=== PATIENT | male | born 1980 | race Caucasian/White ===

== ENCOUNTER 2016-06-06 08:04 | Emergency (ER) | payer OTHER ==
[~2016-06-06] VITALS: Ht 185.4 cm; Wt 85.0 kg
[2016-06-06 08:12] VITALS: BP 130/75; PULSE 73; RESP 14; TEMP 98.1; O2SAT 99
[2016-06-06 09:10] LABS: AUTOMATED NEUTROPHIL # 5.7 TH/MM3 (1.8-7.7); BASOPHIL % 0.5 % (0.0-2.0); EOSINOPHIL # 0.1 TH/MM3 (0-0.4); EOSINOPHIL % 0.9 % (0.0-4.0); HEMATOCRIT 44.9 % (39.0-51.0); HEMO FLAGS DIFF FINAL; LYMPH % 21.9 % (9.0-44.0); LYMPHOCYTE # 1.8 TH/MM3 (1.0-4.8); MEAN CELL VOLUME 86.9 FL (80.0-100.0); MEAN CORPUSCULAR HGB CONC 34.6 % (32.0-36.0); MONO % 7.8 % (0.0-8.0); NEUT % 68.9 % (16.0-70.0); PLATELET COUNT 201 TH/MM3 (150-450); RED BLOOD COUNT 5.17 MIL/MM3 (4.50-5.90); RED CELL DISTRIBUTION WIDTH 13.6 % (11.6-17.2); WHITE BLOOD COUNT 8.2 TH/MM3 (4.0-11.0)
[2016-06-06 09:16] LABS: AMPHETAMINE, URINE NEG (NEG); BARBITURATES, URINE NEG (NEG); COCAINE, URINE NEG (NEG)
[2016-06-06 09:24] LABS: POTASSIUM 3.6 MEQ/L (3.5-5.1)
[2016-06-06 13:36] VITALS: BP 130/75; PULSE 73; RESP 14; O2SAT 99
== END 2016-06-06 13:44 | disposition left against medical advice (07) ==
LOC: NEPJ 08:04
DX: F99 Mental disorder, not otherwise specified (principal)
CPT/HCPCS: 80048; 80307; 85025; 99281